=== PATIENT | female | born 1990 | race Caucasian/White ===

== ENCOUNTER 2017-10-01 03:13 | Emergency (ER) | payer SELFPAY ==
[2017-10-01 03:41] VITALS: TEMP 97.8
[2017-10-01] MEDS ORDERED: KETOROLAC TROMETHAMINE INJ 30 MG/ML VIAL IV ONE (03:44)
[2017-10-01] MEDS ORDERED: LACTATED RINGERS 1,000 ML IVS ONE (04:10)
--- NOTE | 2017-10-01 04:13 | ED.PDOC ---
History of Present Illness - General Chief Complaint: GI Problem Stated Complaint: Lower abd pain Time Seen by Provider: 10/01/17 03:43 Information Source: patient Exam Limitations: no limitations - History of Present Illness Initial Comments: Samia Griffith 27 y/o female stated that she had onset of sharp abdominal pains after they were about to finish having sex with his boyfriend steve .She stated that her boyfriend was wearing condoms.No dysuria,no nausea/vomiting ,no vaginal discharge or bleeding.Had history of treatment for chlamydia 5 years ago. Abdominal Pain Onset Location: suprapubic Pain Radiation: no radiation Quality: sharpness Timing/Duration: 1-3 hours Improving Factors: nothing Worsening Factors: nothing Associated Symptoms: denies symptoms Review of Systems - Review of Systems Constitutional: States: no symptoms reported EENTM: States: no symptoms reported Respiratory: States: no symptoms reported Cardiology: States: no symptoms reported Gastrointestinal/Abdominal: States: see HPI Genitourinary: States: no symptoms reported Musculoskeletal: States: no symptoms reported Skin: States: no symptoms reported Neurological: States: no symptoms reported All other Systems: Reviewed and Negative, No Change from Baseline Past Medical History (General) - Patient Medical History Hx Seizures: No Hx Stroke: No Hx Dementia: No Hx Asthma: No Hx of COPD: No Hx Cardiac Disorders: No Hx Congestive Heart Failure: No Hx Pacemaker: No Hx Hypertension: No Hx Thyroid Disease: No Hx Diabetes: No Hx Gastroesophageal Reflux: No Hx Renal Disease: No Hx Cancer: No Hx of HIV: No Hx Hepatitis C: No Hx MRSA: No Surgical History: no surgical history - Vaccination History Hx Tetanus, Diphtheria Vaccination: No Hx Influenza Vaccination: No Hx Pneumococcal Vaccination: No - Social History Hx Tobacco Use: Yes Hx Alcohol Use: No Hx Substance Use: No Hx Substance Use Treatment: No Hx Depression: No - Female History Patient is a Female of Child Bearing Age (10 -59 yrs old): Yes Hx Last Menstrual Period: 09/17/17 Patient : No - nulligravida - Triage Comment ED Triage Comment: Presents to ER--POV-Amb--C/O Low[place] abd pain after having sex states--no vagial bleeding or discharge states Family Medical History - Family History Mother Family History: Unknown Physical Exam - Physical Exam General Appearance: Alert, Anxious, No apparent distress Eyes, Ears, Nose, Throat Exam: normal ENT inspection, pharynx normal Neck: non-tender, supple Respiratory: chest non-tender, lungs clear, normal breath sounds Cardiovascular/Chest: normal peripheral pulses, regular rate, rhythm, no murmur Peripheral Pulses: No deficit Gastrointestinal/Abdominal: soft, tenderness - lower abdomen no guarding ,no rebound Back Exam: no CVA tenderness, no vertebral tenderness Extremity: no pedal edema, no calf tenderness Neurologic: alert, oriented x 3 Progress - Progress Progress: 10/01/17 04:39 Vital Signs 10/01/17 03:33 Temperature 97.8 F Blood Pressure 126/87 [monitor] O2 Sat by Pulse 97 Oximetry - Results/Orders Results/Orders: 10/01/17 03:44 IV Care:Saline Lock per Protoc QSHIFT 10/01/17 04:10 Lactated Ringers [Lr] 1,000 ml IVS ONCE 10/01/17 04:20 GC CHLAMYDIA RNA,TMA Stat 10/01/17 05:00 Abdoment/Pelvis w/o Contrast [CT] Stat Laboratory Results - last 24 hr 10/01/17 10/01/17 10/01/17 04:00 04:00 04:20 WBC 6.7 RBC 4.37 Hgb 13.9 Hct 39.1 MCV 89.5 MCH 31.9 H MCHC 35.6 RDW 12.6 Plt Count 211 MPV 8.5 Absolute Neuts (auto) 3.30 Absolute Lymphs (auto) 2.60 Absolute Monos (auto) 0.60 Absolute Eos (auto) 0.10 Absolute Basos (auto) 0.00 Neutrophils % 49.6 Lymphocytes % 39.0 Monocytes % 8.7 Eosinophils % 2.1 Basophils % 0.6 Sodium 140 Potassium 3.6 Chloride 111 Carbon Dioxide 19 L Anion Gap 13.6 BUN 24 H Creatinine 0.55 L BUN/Creatinine Ratio 43.6 H Random Glucose 111 H Serum Osmolality 284.1 Calcium 9.3 Urine Color Urine Appearance Urine pH Ur Specific [place] Urine Protein Urine Glucose (UA) Urine Ketones Urine Blood Urine Nitrite Urine Bilirubin Urine Urobilinogen Ur Leukocyte Esterase Urine RBC Urine WBC Ur Epithelial Cells Amorphous Sediment Urine Bacteria Urine Mucus Urine HCG, Qual Negative 10/01/17 04:20 WBC RBC Hgb Hct MCV MCH MCHC RDW Plt Count MPV Absolute Neuts (auto) Absolute Lymphs (auto) Absolute Monos (auto) Absolute Eos (auto) Absolute Basos (auto) Neutrophils % Lymphocytes % Monocytes % Eosinophils % Basophils % Sodium Potassium Chloride Carbon Dioxide Anion Gap BUN Creatinine BUN/Creatinine Ratio Random Glucose Serum Osmolality Calcium Urine Color Yellow Urine Appearance Cloudy Urine pH 7.0 Ur Specific [place] 1.025 Urine Protein Negative Urine Glucose (UA) Negative Urine Ketones 15 H Urine Blood Trace-intact H Urine Nitrite Negative Urine Bilirubin Negative Urine Urobilinogen 1.0 Ur Leukocyte Esterase Negative Urine RBC 0-1 Urine WBC 0-1 Ur Epithelial Cells 5-10 Amorphous Sediment 2+ Urine Bacteria 1+ Urine Mucus Trace Urine HCG, Qual - EKG/XRAY/CT CT Ordered: Yes - ruptured hemorrhagic cyst left ovary Departure - Departure Clinical Impression: Hemorrhagic cyst of left ovary Abdominal pain Qualifiers: Abdominal location: lower abdomen, unspecified Qualified Code(s): R10.30 - Lower abdominal pain, unspecified Time of Disposition: 05:49 Disposition: Discharge to Home or Self Care Condition: Good Departure Forms: ED Discharge - Pt. Copy, Patient Portal Self Enrollment Instructions: DI for Ovarian Cyst Removal, Ovarian Cyst, Ovarian Cyst Removal - - Laparoscopic Surgery Additional Instructions: Need to follow up with Disc Pad Plate Filler for further evaluation of ovarian cyst ; May take Aleve 1-2 tablets am/pm for pain
--- NOTE | 2017-10-01 05:35 | CT ---
EXAM DESCRIPTION: CT ABDOMEN AND PELVIS WITHOUT CONTRAST CLINICAL HISTORY: pain COMPARISON: None Available. TECHNIQUE: CT of the abdomen and pelvis without IV contrast. FINDINGS: Abdomen: The liver has normal size and density. No calcified gallstones. The spleen, pancreas, and adrenal glands are unremarkable. The kidneys have normal size and contour without evidence of hydronephrosis. No obstructing ureteral calculi. The aorta and IVC have normal caliber and position. No free intraperitoneal air. The stomach and duodenum have normal course. Pelvis: There is a 5.3 cm hemorrhagic left ovarian cyst. There the hemorrhage has ruptured into the cul-de-sac. The uterus is not enlarged. Urinary bladder is unremarkable. No free pelvic fluid or lymphadenopathy. No dilated loops of large or small bowel. Normal appendix. The visualized lung bases are clear. No destructive bone lesions identified. DLP: 766.5 mGy-cm IMPRESSION: 1. There is a 5.3 cm hemorrhagic left ovarian cyst. Cyst is likely ruptured and there is a mild volume of hemorrhage in the cul-de-sac. Correlation with pelvic ultrasound recommended. This exam was performed according to our departmental dose-optimization program, which includes automated exposure control, adjustment of the mA and/or kV according to patient size and/or use of iterative reconstruction technique. Electronically signed by: Adama Butt 10/01/2017 5:34 AM TEACHER ADVISOR
[2017-10-01] MEDS ORDERED: HYDROCOD/APAP 7.5/325 (ER DISP) #3 TAB PO ONE (05:50)
[2017-10-01] MEDS ORDERED: HYDROcodone 7.5MG/APAP 325MG 1 EA TAB PO ONE (05:51)
[2017-10-01 06:22] VITALS: BP 102/62; O2SAT 95
== END 2017-10-01 06:10 | disposition home or self-care (01) ==
LOC: ER 03:13
DX: N83.202 Unspecified ovarian cyst, left side (principal); Z87.891 Personal history of nicotine dependence
CPT/HCPCS: 36415; 74176; 80048; 81001; 81025; 85025; 87491; 87591; J1885; J7120